=== PATIENT | female | born 1985 | race Caucasian/White ===

== ENCOUNTER → 2020-06-02 | Outpatient (CLI) | payer OTHER ==
[~2020-06-02] MED LIST: LEVEMIR100 U/ML SQ; MIRENA52 MG IY; NORCO 325 MG-51 TAB PO; PRENATAL VITAMI1 TA5 PO
== END ==
LOC: COL.RAD 07:57
DX: K82.8 Other specified diseases of gallbladder (principal)

== ENCOUNTER 2020-06-27 05:23 | Day surgery (SDC) | payer OTHER ==
[~2020-06-27] VITALS: Ht 157.5 cm; Wt 60.5 kg
[~2020-06-27 05:23] MED LIST changes: -MIRENA52 MG IY; -NORCO 325 MG-51 TAB PO
[2020-06-27] MEDS ORDERED: MIRENA52 MG IY (05:58)
[2020-06-27 06:02] VITALS: BP 102/65; PULSE 94; TEMP 98.1
[2020-06-27] MEDS ORDERED: NORCO 325 MG-51 TAB PO (09:33)
[2020-06-27 10:00] VITALS: BP 104/61; PULSE 90; TEMP 98.3
--- NOTE | 2020-06-27 10:00 | NUR ---
The patient arrived back to [facility] from the recovery room at this time. The patient appears alert and and oriented and denies any pain or nausea at this time. Post operative vital signs were started at this time. The patient has three bandaids to her abdomen that appear clean, dry and intact. The patient's is at her bedside. Call light is within reach. Will continue to monitor the patient.
[2020-06-27 10:15] VITALS: BP 100/58; PULSE 69
--- NOTE | 2020-06-27 10:15 | NUR ---
The patient appeared to tolerate the water well. The patient agrees to try some orange jello. Vital signs appear stable. The patien continues to deny any pain or nausea at this time. remains at her bedside. Will continue to monitor the patient.
[2020-06-27 10:30] VITALS: BP 111/65; PULSE 67
--- NOTE | 2020-06-27 10:30 | NUR ---
The patient appears to be tolerating the food and drink well. Vital signs appear stable. The patient continues to report minimal pain and no nausea. Call light is within reach.
[2020-06-27 10:45] VITALS: BP 104/64; PULSE 81
--- NOTE | 2020-06-27 10:45 | NUR ---
The patient appears to be resting comfortably on the cart. remains at her bedside. Call light is within reach. Respirations even and unlabored. Will continue to monitor the patient.
[2020-06-27 11:15] VITALS: BP 107/68; PULSE 85
--- NOTE | 2020-06-27 11:15 | NUR ---
The patient voices a desire to be discharged home. IV was INT'd and she was instructed to get dressed at this time. The patient will notify the nurse will be she is ready to escorted out.
--- NOTE | 2020-06-27 11:30 | NUR ---
Discharge instructions were reviewed with the patient and her at this time. They both verbalized understanding and have no questions for the nurse at this time. The patient's IV to her left hand was removed and a pressure dressing was applied to the site. The patient is ready to be escorted out.
--- NOTE | 2020-06-27 11:35 | NUR ---
The patient was escorted out via wheelchair to a private vehicle by BERNY Patel. The patient's belongings and discharge paperwork were sent with her. The patient's is present to drive her home.
== END 2020-06-27 11:35 | disposition home or self-care (01) ==
LOC: SDCO 05:23
DX: K81.1 Chronic cholecystitis (principal); Z20.822 Contact with and (suspected) exposure to COVID-19; Z88.0 Allergy status to penicillin; Z82.49 Family history of ischemic heart disease and other diseases of the circulatory system; Z88.8 Allergy status to other drugs, medicaments and biological substances
CPT/HCPCS: J0690; J1100; J1885; J2250; J2405; J2704; J7120